=== PATIENT | female | born 1970 | race African-American/Black ===

== ENCOUNTER 2016-05-21 17:34 | Emergency (ER) | payer OTHER ==
--- NOTE | ~2016-05-21 | EKG ---
PATIENT: SARAH NEVAREZ UNIT #: [id number] Ventricular Rate: 73 BPM Atrial Rate: 73 BPM P-R Interval: 136 ms QRS Duration: 84 ms Q-T Interval: 402 ms QTC Calculation(Bezet): 442 ms P Reading: 68 degrees Calculated R Reading: 55 degrees Calculated T Reading: 5 degrees Diagnosis Line: Normal sinus rhythm Diagnosis Line: Moderate voltage criteria for LVH, may be normal Diagnosis Line: variant Diagnosis Line: Nonspecific T wave abnormality Inferior leads Diagnosis Line: Abnormal ECG Diagnosis Line: No previous ECGs available Diagnosis Line: Confirmed by RYLIE RM MD ([id number]) on 05/21/2016 Diagnosis Line: 9:24:42 PM INTERPRETING MD: JAG RAMOS
--- NOTE | ~2016-05-21 | US67 ---
[facility] A Service of [facility] RADIOLOGY TEXT RESULTS PATIENT: SARAH NEVAREZ LOCATION: [facility] : 72 UNIT #: [id number] AGE: [address]: Jhon Morris MD SEX: F ORDER DR: [id number] [facility] [address] [place], [place] [address] [id number] MR#: [id number] Acc #: [id number] NAME: SARAH NEVAREZ : 1970 SEX: F STUDY DATE/TIME: 05/21/2016 18:22 UNIT: [facility] ROOM: STUDY DESCRIPTION: Gallbladder Attending Physician: Jhon Morris M.D. Referring Physician: Alexandre Triana M.D. Ordering Physician: Jhon Morris M.D. Primary Care Physician: Alexandre Triana M.D. MEDICAL IMAGING REPORT This report is preliminary unless electronic signature is present EXAM Gallbladder ultrasound 05/21 INDICATIONS Abdominal pain that started this morning with some associated nausea. Episode of vomiting as well. FINDINGS Sonographic evaluation was performed of the right upper quadrant in multiple planes. No comparison. Pancreas is normal. Liver parenchyma is homogeneous with no focal mass. Main portal vein is patent by Doppler. The right kidney is morphologically normal and nonobstructed. Gallbladder contains stones and sludge. No definite gallbladder wall thickening is seen. Common duct is normal at 3 mm in internal diameter. No free fluid. IMPRESSION 1. Gallstones and gallbladder sludge. No gallbladder wall thickening or biliary obstruction is seen. 2. Right upper quadrant ultrasound is otherwise normal. Dictated by... Moose Palacio Jr., M.D. THIS IS AN ELECTRONICALLY VERIFIED REPORT Moose Palacio Jr., M.D. at 05/22/2016 7:35 AM LAYLAK/maria luisar TD: 05/21/2016 18:53 JOB #: [id number] MEDICAL IMAGING REPORT [facility] A Service of [facility] RADIOLOGY TEXT RESULTS PATIENT: SARAH NEVARE[id number] [birth year] UNIT #: [id number] AGE: [address]: Jhon Morris MD SEX: F ORDER DR: Page 1 of 1 COPY
[2016-05-21 15:47] LABS: BASOPHIL% 0.4 % (0-2.5); EOSINOPHIL% 0.3 % (0.0-7.0); HEMATOCRIT 39.2 % (35.0-45.0); LYMPHOCYTE# 1.1 X10e3 (1.0-3.5); LYMPHOCYTE% 15.6 % (17.0-45.0); MEAN CELL VOLUME 89.2 FL (83-96); MEAN CORPUSCULAR HEMOGLOBIN 29.6 PG (28-34); MEAN CORPUSCULAR HGB CONC 33.2 g/dL (30-36); MEAN PLATELET VOLUME 8.5 FL (6.5-11.5); MONOCYTE# 0.5 X10e3 (0-1.0); NEUTROPHIL# 5.3 X10e3 (1.5-7.1); NEUTROPHIL% 76.7 % (40-75); PLATELET COUNT 255 X10e3 (140-420); RED CELL DISTRIBUTION WIDTH 13.2 % (11.0-15.5); WHITE BLOOD COUNT 6.9 X10e3 (4.0-10.5)
[2016-05-21 15:51] LABS: DIFF IND NO
[2016-05-21 16:01] LABS: URINE SOURCE CLEAN CATCH
[2016-05-21 16:05] LABS: URINE APPEARANCE CLEAR; URINE BILIRUBIN NEG (NEG); URINE BLOOD 2+ (NEG); URINE COLOR YELLOW; URINE GLUCOSE NEG (NEG); URINE KETONE NEG (NEG); URINE LEUKOCYTE ESTERASE TRACE (NEG); URINE NITRATE NEG (NEG); URINE PROTEIN 2+ (NEG); URINE SPECIFIC GRAVITY 1.019 (1.003-1.035)
[2016-05-21 16:07] LABS: CULTURE INDICATED? YES; URBCS1 AUWI 25-50 /[HPF] (0-2); URINE BACTERIA AUWI NEG (NEGATIVE); URINE SQUAMOUS EPITHELIAL CELL MOD /[HPF]
[2016-05-21 16:17] LABS: ALBUMIN SERUM 3.6 g/dL (3.5-5.0); BILIRUBIN, DIRECT 0.2 mg/dL (0.0-0.2); BILIRUBIN,INDIRECT 0.2 mg/dL (0.0-0.9); BILIRUBIN,TOTAL 0.4 mg/dL (0.2-2.0); BUN/CREATININE RATIO 18.33; CALCIUM SERUM 8.8 mg/dL (8.4-10.2); CREATININE SERUM 0.6 mg/dL (0.6-1.4); GLOM FILT RATE Estimated 128.5 mL/min (>60); POTASSIUM 3.9 mmol/L (3.5-5.1); PROTEIN TOTAL SERUM 7.2 g/dL (6.0-8.3)
[2016-05-21 19:39] LABS: POC - CKMB <1.0 ng/mL (0.0-7.9); POC - TROPONIN <0.05 ng/mL (<=0.05)
[2016-06-13] MEDS ORDERED: NO MEDICATIONS (11:35)
== END 2016-05-21 20:58 | disposition home or self-care (01) ==
LOC: CED 17:34
PROVIDERS: Emergency Medicine
DX: N39.0 Urinary tract infection, site not specified (principal)
CPT/HCPCS: 36415; 76705; 80048; 80076; 81003; 82553; 83690; 84484; 84703; 85025; 87086; 93005; 99284

== ENCOUNTER → 2016-06-13 | Outpatient (CLI) | payer OTHER ==
[~2016-06-13] MED LIST: NO MEDICATIONS
[2016-06-13 12:30] LABS: HEMATOCRIT 40.3 % (35.0-45.0); HEMOGLOBIN 13.5 gm/dL (12.0-16.0); MEAN CELL VOLUME 89.2 FL (83-96); MEAN CORPUSCULAR HEMOGLOBIN 29.9 PG (28-34); MEAN CORPUSCULAR HGB CONC 33.5 g/dL (30-36); MEAN PLATELET VOLUME 8.6 FL (6.5-11.5); RED BLOOD COUNT 4.52 X10e (3.90-5.30); RED CELL DISTRIBUTION WIDTH 13.2 % (11.0-15.5); WHITE BLOOD COUNT 5.1 X10e3 (4.0-10.5)
[2016-06-13 13:11] LABS: ALBUMIN SERUM 3.6 g/dL (3.5-5.0); BILIRUBIN,TOTAL 0.3 mg/dL (0.2-2.0); CALCIUM SERUM 9.7 mg/dL (8.4-10.2); CREATININE SERUM 0.5 mg/dL (0.6-1.4); GLOM FILT RATE Estimated 136.4 mL/min (>60); POTASSIUM 4.1 mmol/L (3.5-5.1); PROTEIN TOTAL SERUM 7.1 g/dL (6.0-8.3)
== END | disposition home or self-care (01) ==
LOC: CAMB 11:02
PROVIDERS: Surgery
DX: Z01.812 Encounter for preprocedural laboratory examination (principal); K80.20 Calculus of gallbladder without cholecystitis without obstruction
CPT/HCPCS: 36415; 80053; 85027

== ENCOUNTER → 2016-06-20 | Day surgery (SDC) | payer OTHER ==
--- NOTE | ~2016-06-20 | OR ---
Unit #: [id number] #: [id number] Patient: SARAH NEVAREZ [id number] [address] [place], [place] [address] [id number] MR#: [id number] NAME: SARAH NEVAREZ ROOM: Date of Procedure: 06/20/2016 Admission Date: 06/20/2016 Surgeon: Luke Cain Jr., M.D. : 1970 Attending Physician: Luke Cain Jr., M.D. Primary Care Physician: Alexandre Triana M.D. OPERATIVE REPORT INDICATION FOR PROCEDURE The patient is a 45-year-old [place] female, who has been having intermittent mid epigastric right upper quadrant abdominal pain. She has been worked up. Ultrasound revealed evidence of gallstones and it was felt that she is having biliary colic. Preoperative liver function tests are basically normal. She is brought to the operating room at this time for laparoscopic cholecystectomy at her request. She understands the procedure including the risk and consents. Her informations all being given through an crane manager. PREOPERATIVE DIAGNOSES Chronic cholecystitis and cholelithiasis. POSTOPERATIVE DIAGNOSIS Chronic cholecystitis and cholelithiasis. ANESTHESIA General with endotracheal intubation. ASSISTANT Ezio Pal M.D. PROCEDURE PERFORMED Laparoscopic cholecystectomy. DESCRIPTION OF PROCEDURE The patient was positioned in supine position. After being anesthetized and intubated, she was prepped and draped in routine fashion for laparoscopic cholecystectomy. A small supraumbilical incision was made approximately a 1 cm in length. This was carried down to the fascia. Fascia lifted between 2 Jose Carlos clamps and a Veress needle introduced into the abdomen. The abdomen was then inflated with CO2 gas. A 5-mm port was introduced into the abdomen followed by the camera. There was no evidence of any injury related to introduction of the port of the Veress needle. Brief intra-abdominal exploration was carried out and the patient was noted to have a chronically inflamed gallbladder with some stones obviously within it. Liver appeared normal. Two 5-mm ports were placed laterally and an 11-mm port just to the right of the upper midline. The gallbladder was lifted. Dissection was carried out in the triangle of Calot, cystic duct which was only 1 to 2 mm in diameter was isolated, hemoclipped x4, and transected. This was done approximately a 1 cm from its junction with the common duct. The common duct appeared normal. Unit #: [id number] #: [id number] Patient: SARAH NEVAREZ Cystic artery was identified, hemoclipped x3 with 2 different branches being hemoclipped and divided. The gallbladder was then removed from its bed with the hook cautery using a current of 20 and after it was released, it was removed through the upper midline incision along the grasping clamp and the port. The port was replaced. Subhepatic space checked. There was no evidence of any bleeding at all from the gallbladder bed. The clips on cystic duct and cystic artery were intact with no evidence of any leak or bleeding. The fascia in the larger port site was then approximated using the neoClose technique and the rest of the ports removed. CO2 was expressed from the abdomen. The port sites were injected with 0.25% Marcaine with epinephrine and after this was completed, the wounds were irrigated and the skin edges were approximated with stainless-steel skin clips and skin stapling device. Sterile dressings were applied externally. Estimated blood loss less than 30 mL. The patient received less than 1000 mL crystalloid solution during the procedure. Sponges and instrument counts were correct x3. No drains used. No complications. The patient was taken to the recovery room with stable vital signs in satisfactory condition. Dictated by... Luke Cain Jr., M.Evelyn IGLESIAS/cortez TD: 06/20/2016 22:51 JOB #: [id number] OPERATIVE REPORT Page 1 of 1 X Luke Cain MD X PROCEDURE OPERATIVE NOTE
== END | disposition home or self-care (01) ==
LOC: CSUR 09:23
DX: K80.10 Calculus of gallbladder with chronic cholecystitis without obstruction (principal); Z91.012 Allergy to eggs
CPT/HCPCS: 84703; 88304; J0690; J1100; J1650; J1885; J2250; J2405; J2710; J3010

== ENCOUNTER 2016-10-03 23:13 | Emergency (ER) | payer OTHER ==
[~2016-10-03] VITALS: Ht 167.6 cm; Wt 78.9 kg
== END 2016-10-04 01:59 | disposition home or self-care (01) ==
LOC: CFTX 23:13 → CED 23:13 → CFTX 23:59
DX: M25.561 Pain in right knee (principal)
CPT/HCPCS: 29530; 99283